=== PATIENT | male | born 1930 | race Caucasian/White ===

== ENCOUNTER 2017-11-17 07:00 | Observation (INO) ==
[~2017-11-17 07:00] MED LIST: LIDOCAINE W/ SODIUM BICARB 0.5 ML SYR SUBD ONE; Lactated Ringers 1,000 ML PRIMARY IV SCH; Nasal Sanitizer POPSWAB ampule 3 AMP (Nozin) PREOP DOSE ENOS SCH; ceFAZolin Inj 2gm (Premix) 2 GM/50 ML BAG IV ONE
[2017-11-17] MEDS ORDERED: ceFAZolin Inj 2gm (Premix) 0 GM/0 ML BAG IV ONE (07:03)
[2017-11-17] MEDS ORDERED: Lactated Ringers 0 ML PRIMARY IV ONE (07:03)
[2017-11-17] MEDS ORDERED: LIDOCAINE W/ SODIUM BICARB 0.5 ML SYR ONE (07:03)
[2017-11-17] MEDS ORDERED: MIDAZOLAM 5 MG/1 ML ONE (07:11)
[2017-11-17] MEDS ORDERED: REMIFENTANIL 1 MG/1 ML IV ONE (07:12)
[2017-11-17] MEDS ORDERED: PROPOFOL 10 MG/1 ML (200 MG/20 ML) VIAL IV ONE (07:12)
[2017-11-17] MEDS ORDERED: fentaNYL Inj 100 MCG/2 ML VIAL ONE (07:12)
[2017-11-17] MEDS ORDERED: Sodium Chloride 0.9% vial 10 ML ONE (07:14)
[2017-11-17] MEDS ORDERED: LIDOCAINE MPF 2% - 5 ML (20 MG/1 ML) ONE (07:14)
[2017-11-17] MEDS ORDERED: Sodium Chloride 0.9% 100 ML IV ONE (07:21)
--- NOTE | 2017-11-17 07:39 | EKG ---
[address] [address] Measurements Intervals [place] Rate: 69 P: MN: 0 QRS: 3 QRSD: 88 T: 5 QT: 408 QTc: 428 Interpretive Statements ATRIAL FIBRILLATION ABNORMAL RHYTHM ECG No previous ECG available for comparison Electronically Signed On 11-17-17 09:22:21 MDT by Marco Amador MD [email or web address]
--- NOTE | 2017-11-17 09:42 | PDOC(PROG) ---
Date of Service: 11/17/17 Time of Service: 09:00 Interval History: The patient presented this morning for excision of a large basal cell carcinoma on his back. Monitor showed a slightly irregular rhythm. An EKG was done and the patient is in atrial fibrillation. Anesthesia felt it was unwise to proceed with his surgery. I came in to evaluate the patient. Patient does report he has had an irregular heartbeat in the past. He was told he skipped beat. That goes back to his days. He has never been told he is in atrial fibrillation. He does not recall when he had his last EKG. He denies chest pain or shortness of breath. He feels fine. He is not aware of his irregular heartbeat. He does have some chronic left shoulder pain but nothing new. When I saw him several days ago in the office his heart rate was regular. I talked to the hospitalist. He feels with a new onset of atrial fibrillation it warrants overnight observation and rule out myocardial infarction and an echocardiogram. He has agreed to admit him for further care. I have discussed this with the patient and his . Objective : Exam - General General Appearance: No Acute Distress, Cooperative - Respiratory Respiratory Exam: Clear to Auscultation - Bilaterally, Breathing Non Labored - Cardiovascular Cardiovascular Exam: No Murmur, Irregular Rhythm (Predominantly regular with occasional skipped beat and then some irregular beats.) - GI/Abdominal GI/Abdominal Exam: Normal Bowel Sounds, Non Tender, Non Distended, Soft Assessment and Plan - Patient Problems (1) Atrial fibrillation by electrocardiogram Current Visit: Yes Status: Acute Priority: High Onset Date: Unknown Comment: Presumably new-onset atrial fibrillation. Patient will be admitted to the hospitalist service for further care. When he is cleared he will call my office and we will proceed with excision of the basal cell carcinoma on his back. I have spoken to Dr. Young the hospitalist. I have spoken to the patient and his . All are in agreement to proceed as outlined. Code(s): I48.91 - Unspecified atrial fibrillation
[2017-11-17] MEDS ORDERED: LIDOCAINE W/ SODIUM BICARB 0.5 ML SYR SUBD PRN (10:11)
[2017-11-17] MEDS ORDERED: ASCORBIC ACID 1 GM PO SCH (10:15)
[2017-11-17 10:55] LABS: BASOPHILS # (AUTO) 0.02 10*3/UL; BASOPHILS % (AUTO) 0.2 % (0-1); EOSINOPHILS % (AUTO) 1.2 % (0-8); Hematocrit [HCT] 44.5 % (42.0-52.0); Hemoglobin [HGB] 15.2 g/dL (14.0-18.0); LYMPHOCYTES # (AUTO) 1.66 10*3/uL; MEAN CORPUSCULAR HEMOGLOBIN 31.5 PG (27-31); MEAN CORPUSCULAR HGB CONC 34.2 g/dL (33-37); MEAN CORPUSCULAR VOLUME 92.1 FL (80-90); MEAN PLATELET VOLUME 10.2 FL (7.4-12.2); MONOCYTES % (AUTO) 8.3 % (5-15); NEUTROPHILS # (AUTO) 5.92 10*3/UL; NEUTROPHILS % (AUTO) 70.5 % (50-80); RED BLOOD COUNT 4.83 10^6/uL (4.70-6.10)
[2017-11-17 10:58] LABS: PLATELET MORPHOLOGY COMMENT NORMAL MORPHOLOGY (NORM); RBC MORPHOLOGY COMMENT NORMAL MORPHOLOGY (NORM); WBC MORPHOLOGY COMMENT NORMAL MORPHOLOGY (NORM)
[2017-11-17 11:06] LABS: BLOOD UREA NITROGEN 24 mg/dL (7-22); SERUM ALBUMIN 3.9 g/dL (3.5-4.8)
--- NOTE | 2017-11-17 12:12 | PDOC ---
HPI - History of Present Illness Date of Service: 11/17/17 Time of Service: 12:07 Chief Complaint: Skipped heartbeat noticed History of Present Illness: This is a very pleasant 87-year-old male with prior history of benign prostatic hypertrophy who is accompanied by his today waiting for surgery on an excision of a large basal cell carcinoma. In the perioperative holding, an EKG was done and the patient was examined by anesthesia and it was found that he was in atrial fibrillation with a controlled response. The patient is completely asymptomatic, no chest pains and no shortness breath. He's never had skipped heartbeats or symptoms or diagnosis of atrial fibrillation before. He's never had congestive heart failure, coronary artery disease events, or stroke. Given the finding of atrial fibrillation his surgery has been put on hold and I'm admitting the patient to start a workup on what the underlying cause of his atrial fibrillation might be. Again, the patient's never had this problem before. Does not drink alcohol. Has normal thyroid function. He has not had a stress test. He has never had a heart attack. He takes a baby aspirin daily normally. Past Medical History Medical History: 1. Benign prostatic hypertrophy Surgical History: 1. Hip replacement. 2. Cholecystectomy. 3. Tonsillectomy and adenoidectomy. 4. Prostate surgery Pertinent Family History: Significant for coronary artery disease in his father who of a heart attack at age 59. Past Social History: Quit smoking over 30 years ago. for almost 50 years. Has 4 children. 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 Tobacco Use: Former Smoker In the Past 12 Months, Have Used or Abuse Any of the Following Substance: None Alcohol Use: Occasionally Medication / Allergies Home Medications: Home Medications 3 Medication Instructions Recorded Confirmed Type Aspir 81 81 mg PO DAILY 09/25/10 11/17/17 History Acetaminophen [Tylenol] 325 mg PO PRN tab 09/16/16 11/17/17 History Tamsulosin HCl 2 cap PO DAILY #60 cap 09/17/16 11/17/17 Rx ascorbic acid (vitamin C) 1,000 mg 1 g PO Q6H 10/12/17 11/17/17 History tablet calcium carbonate 600 mg calcium 600 mg PO BID tab 10/12/17 11/17/17 History (1,500 mg) tablet Allergies/Adverse Reactions: Allergies 3 Allergy/AdvReac Type Severity Reaction Status Date / Time No Known Allergies Allergy Verified 11/17/17 07:23 Review of Systems - Review of Systems All Systems: Reviewed & No Additional Complaints Except as Stated (I did a 12 point review systems and it was negative other than that discussed in history of present illness an exceptions noted below.) - Cardiovascular Cardiovascular: REPORTS: Other (History of murmur in the past) - Musculoskeletal Musculoskeletal: REPORTS: Other (Gets joint pains from time to time. Attributed to arthritis. Chronic issue. Also gets bilateral edema at times but that is resolved with elevation of legs and is consistent with dependent edema) Exam - Vitals Vital Signs: Vital Signs Temperature 97.9 F Temperature Source Temporal Artery Scan Pulse Rate [Pulse Oximeter] 74 Pulse Rate 72 Respiratory Rate 20 Blood Pressure [Left Arm] 146/70 Blood Pressure 152/85 Pulse Ox 95 Oxygen Flow Rate room air Oxygen Delivery Method Room Air Height 5 ft 6 in Weight 189 lb 6.4 oz - General General Appearance: No Acute Distress, Cooperative - Head Head Exam: Normal Inspection, Normocephalic, Atraumatic - Eye Eye Exam: POSITIVE: No Scleral Icterus - ENT ENT Exam: POSITIVE: Mucous Membranes Moist - Neck Neck Exam: Normal Inspection, No Tenderness, No Lymphadenopathy, No Thyromegaly , JVP is not Raised - Respiratory Respiratory Exam: POSITIVE: Clear to Auscultation - Bilaterally, Breathing Non Labored, Normal to Percussion and Palpation - Cardiovascular Cardiovascular Exam: POSITIVE: RRR (At the time of my examination, the patient is regular rate and rhythm), No Murmur, No Clicks, No Gallops, No Rubs, No JVD - GI/Abdominal GI/Abdominal Exam: POSITIVE: Normal Bowel Sounds, Non Tender, Non Distended, Soft - Rectal Rectal Exam: POSITIVE: Deferred - External Exam: POSITIVE: Deferred Exam: POSITIVE: Deferred - Extremities Extremities Exam: POSITIVE: No Clubbing Present, No Edema Present, No Cyanosis Present - Back Back Exam: POSITIVE: No CVA Tenderness - Neurological Neurological Exam: POSITIVE: Alert, Oriented x 3, No Facial Droop, Speech Intact / Clear, Moves All Extremities Equally - Psychiatric Psychiatric Exam: POSITIVE: Normal Affect, Normal Mood Results - Labs CBC and BMP: 11/17/17 10:48 11/17/17 10:48 Additional Lab Results: Laboratory Results 11/17/17 11/17/17 11/17/17 Range/Units 10:25 10:48 10:48 WBC 8.41 (4.8-10.8) 10^3/uL RBC 4.83 (4.70-6.10) 10^6/uL Hgb 15.2 (14.0-18.0) g/dL Hct 44.5 (42.0-52.0) % MCV 92.1 H (80-90) FL MCH 31.5 H (27-31) PG MCHC 34.2 (33-37) g/dL RDW Std Deviation 46.1 (39-50) fL RDW Coeff of Dago 13.9 (11.5-14.5) % Plt Count 212 (140-350) 10*3/uL MPV 10.2 (7.4-12.2) FL Immature Gran % (Auto) 0.1 (0-5) % Neut % (Auto) 70.5 (50-80) % Lymph % (Auto) 19.7 (10-50) % Delta % (Auto) 8.3 (5-15) % Eos % (Auto) 1.2 (0-8) % Baso % (Auto) 0.2 (0-1) % Immature Gran # (Auto) 0.01 10*3/UL Neut # (Auto) 5.92 10*3/UL Lymph # (Auto) 1.66 10*3/uL Delta # (Auto) 0.70 (0.3-0.8) 10*3/UL Eos # (Auto) 0.10 10*3/UL Baso # (Auto) 0.02 10*3/UL WBC Morphology Comment Normal morphology (NORM) Plt Morphology Comment Normal morphology (NORM) RBC Morph Comment Normal morphology (NORM) PT 10.9 (9.7-11.4) secs INR 1.06 (0.00-5.90) N/A Sodium (135-145) meq/L Potassium (3.8-5.2) meq/L Chloride (98-112) meq/L Carbon Dioxide (23-33) meq/L Anion Gap (5-20) BUN (7-22) mg/dL Creatinine (0.70-1.50) mg/dL BUN/Creatinine Ratio (6-20) Glucose (78-110) mg/dL Calculated Osmolality (267-292) mOsm/kg Calcium (8.7-10.7) mg/dL Magnesium (1.6-2.4) mg/dL Total Bilirubin (0.3-1.2) mg/dL AST (21-57) IU/L ALT (21-72) IU/L Alkaline Phosphatase (38-126) IU/L Troponin I < 0.012 (< 0.040) ng/mL Total Protein (6.1-8.0) g/dL Albumin (3.5-4.8) g/dL Globulin (2.50-4.10) g/dL Albumin/Globulin Ratio (1.3-2.0) mg/g TSH (0.2700-4.2000) uIU/mL Free T4 (0.93-1.71) ng/dL 11/17/17 11/17/17 Range/Units 10:48 10:48 WBC (4.8-10.8) 10^3/uL RBC (4.70-6.10) 10^6/uL Hgb (14.0-18.0) g/dL Hct (42.0-52.0) % MCV (80-90) FL MCH (27-31) PG MCHC (33-37) g/dL RDW Std Deviation (39-50) fL RDW Coeff of Dago (11.5-14.5) % Plt Count (140-350) 10*3/uL MPV (7.4-12.2) FL Immature Gran % (Auto) (0-5) % Neut % (Auto) (50-80) % Lymph % (Auto) (10-50) % Delta % (Auto) (5-15) % Eos % (Auto) (0-8) % Baso % (Auto) (0-1) % Immature Gran # (Auto) 10*3/UL Neut # (Auto) 10*3/UL Lymph # (Auto) 10*3/uL Delta # (Auto) (0.3-0.8) 10*3/UL Eos # (Auto) 10*3/UL Baso # (Auto) 10*3/UL WBC Morphology Comment (NORM) Plt Morphology Comment (NORM) RBC Morph Comment (NORM) PT (9.7-11.4) secs INR (0.00-5.90) N/A Sodium 144 (135-145) meq/L Potassium 4.4 (3.8-5.2) meq/L Chloride 112 (98-112) meq/L Carbon Dioxide 26 (23-33) meq/L Anion Gap 6 (5-20) BUN 24 H (7-22) mg/dL Creatinine 1.5 (0.70-1.50) mg/dL BUN/Creatinine Ratio 16.00 (6-20) Glucose 83 (78-110) mg/dL Calculated Osmolality 300.0 H (267-292) mOsm/kg Calcium 9.3 (8.7-10.7) mg/dL Magnesium 1.9 (1.6-2.4) mg/dL Total Bilirubin 1.0 (0.3-1.2) mg/dL AST 16 L (21-57) IU/L ALT 23 (21-72) IU/L Alkaline Phosphatase 73 (38-126) IU/L Troponin I (< 0.040) ng/mL Total Protein 6.6 (6.1-8.0) g/dL Albumin 3.9 (3.5-4.8) g/dL Globulin 2.7 (2.50-4.10) g/dL Albumin/Globulin Ratio 1.40 (1.3-2.0) mg/g TSH 1.26 (0.2700-4.2000) uIU/mL Free T4 1.06 (0.93-1.71) ng/dL - EKG Data -: EKG Interpreted by In Rate: Normal - EKG Data EKG Interpretation: Other (Atrial fibrillation with a controlled ventricular response.) - Imaging Status: Image Pending (I'm going to check a chest x-ray.) AFib Stroke Risk Screening - AFib Stroke Risk (CHADS-VASc) Atrial Fibrillation Ischemic Stroke Risk Factors: Age 75 years or older (Given the patient's age, his stroke risk is 2.2% by risk assessment.) CHADS-VASc Score (A-Fib Stroke Risk Score): 2 CHADS-VASc Risk: High Risk Assessment and Plan - Patient Problems (1) Atrial fibrillation Current Visit: Yes Status: Acute Code(s): I48.91 - Unspecified atrial fibrillation Qualifiers: Atrial fibrillation type: unspecified Qualified Code(s): I48.91 - Unspecified atrial fibrillation (2) Benign prostatic hyperplasia Current Visit: Yes Status: Acute Code(s): N40.0 - Benign prostatic hyperplasia without lower urinary tract symptoms Qualifiers: Lower urinary tract symptom presence: unspecified whether lower urinary tract symptoms present Qualified Code(s): N40.0 - Benign prostatic hyperplasia without lower urinary tract symptoms (3) Basal cell carcinoma of lower back Current Visit: Yes Status: Acute (4) History of prostate cancer Current Visit: Yes Status: Chronic Onset Date: 09/23/15 Code(s): Z85.46 - Personal history of malignant neoplasm of prostate - Assessment / Plan Additional Assessment/Plan Details: Admit the patient for observation Start metoprolol at 12.5 mg by mouth twice a day (metoprolol tartrate) The patient and I spoke in depth regarding Coumadin versus Xarelto versus Eliquis, including all risks and benefits, risks being bleeding complications and possible pitfalls of not being able to reverse bleeding with antidotes, and benefits of treatment of blood clot, lack of drug interactions, and ease of therapy in terms of lab monitoring. The patient and his felt that Eliquis would be the best choice for stroke prevention given his situation. The patient is aware that whenever he starts today, he could always change in the future. I recommend at least 3 weeks of anticoagulation to 4 weeks of anticholinergic prior to any procedures as we do not know if this is chronic intermittent atrial fibrillation or paroxysmal atrial fibrillation Look for potential coronary artery disease with a Lexiscan stress test. I will try to arrange follow-up with cardiology for echocardiogram and surgical clearance. Patient is full code. I discussed the above plan with the patient and his and they agreed to proceed.
[2017-11-17] MEDS ORDERED: Apixaban Tab 2.5 MG TABLET PO ONE (12:17)
[2017-11-17] MEDS ORDERED: HEPARIN 5000 UNIT/1 ML SUBCUT SCH (15:00)
[2017-11-17] MEDS ORDERED: TAMSULOSIN 0.4 MG CAPSULE PO SCH (21:00)
[2017-11-17] MEDS: Metoprolol TARTRATE Tab 25 MG TAB PO SCH (21:11)
[2017-11-17] MEDS: Apixaban Tab 2.5 MG TABLET PO SCH (21:12)
[2017-11-17] MEDS: CALCIUM CARBONATE 500 MG (TUMS) CHEWABLE TABLET PO SCH (21:12)
[2017-11-18 00:03] VITALS: RESP 20
[2017-11-18] MEDS ORDERED: TAMSULOSIN 0.4 MG CAPSULE PO SCH (09:00)
[2017-11-18] MEDS ORDERED: ASPIRIN 325 MG TABLET PO SCH (09:00)
[2017-11-18] MEDS: CALCIUM CARBONATE 500 MG (TUMS) CHEWABLE TABLET PO SCH (09:51)
[2017-11-18] MEDS: Metoprolol TARTRATE Tab 25 MG TAB PO SCH ×2 (09:51→17:40)
[2017-11-18] MEDS: Apixaban Tab 2.5 MG TABLET PO SCH ×2 (09:51→17:40)
--- NOTE | 2017-11-18 09:54 | STRESSTEST ---
[facility] Interpretive Statements This is an 87 YO male with history of BPH who has remote history of smoking and positive family history of CAD, no HTN, no DM, no cholesterol who was found to have atrial fibrillation without symptoms of unknown duration. ruled out for [place]. Sandhya scan stress test done with resting images yesterday. Resting EKG is mixed sinus and afib. rate controlled. Sandhya scan with minimal symptoms, but atrial fibrillation underlying rhythm with occasional PVC. Plan: stress images today, await radiology report. Follow up with cardiology arranged. Electronically Signed On 11-22-17 08:37:17 MDT by Marco Amador MD [email or web address]
--- NOTE | 2017-11-18 16:46 | DI ---
2 DAY LEXISCAN STRESS & REST MYOCARDIAL PERFUSION SCANS, 11/17/2017 9:42 AM : Clinical History: Atrial fibrillation. Previous Exam: None available. The patient was stressed by Dr. Raymond Young DO The standard Lexiscan protocol was used. Please see the Doctor's report. At the designated time, 36.6 mCi of 99Tc-sestimibi was injected IV. Stress gated tomograms were acquired within one hour of the i njection. For the resting scans, 35.0 mCi was injected IV and resting gated tomograms were acquired in similar fashion. Stress scans were performed on 11/18/17; the resting scans were performed on 11/17/17. Quantitative and qualitative analyses were performed. Quantitative analysis was performed with the [place] [facility] [id number] protocols. Very low dose limited CT scans of the chest are o btained through the level of the heart for attenuation correction of the gated stress and rest cardia c SPECT data. Non-attenuated and attenuated scans were processed for review, and the attenuated scans were used for final interpretation of this study. Review of the raw data images and quality assurance supervisor body files indicate that these series of examinations ar e of excellent quality. Stress and rest left ventricular chamber sizes are normal. Stress and rest LV EF are 72 % and 71 %, respectively. There is no evidence of ischemia. There are no defects on stress nor rest. There is normal wall motion and normal ejection fraction. Transient ischemic dilatation ratio is 1.15, with a normal range up to 1.22 for patients str essed with the Ramin protocol and up to 1.33 for patients stressed with the Lexiscan protocol. The very low dose CT scans through the level of the heart demonstrate coronary artery calcifications within the left anterior descending artery There is subsegmental atelectasis in the lung bases. Visualized portions of the abdomen are unremarka ble. Readin. No evidence of ischemia. 2. Normal wall motion and normal ejection fraction.
[2017-11-18 17:26] VITALS: BP 115/61; TEMP 97.6; O2SAT 95
--- NOTE | 2017-11-18 17:37 | DCSUMMARY ---
Hospitalization Summary Admit Date: 11/17/2017 Discharge Date: 11/18/17 Primary Diagnosis:: atrial fibrillation, probably chronic intermittent Hospital Course: This very pleasant 87-year-old male who has underlying benign prostatic hypertrophy post prior history of prostate surgery. He was here for basal cell carcinoma excision to be done under general anesthesia and it was noted that he had atrial fibrillation. He is admitted for further evaluation and management. We admitted the patient, did a stress test, and it was a negative stress test. He ruled out for myocardial infarction. His thyroid function appeared normal. He is not an alcoholic. His chest x-ray shows cardiomegaly. His EKG showed rate controlled atrial fibrillation. Today prior to his Lexiscan stress test component of his 2 day stress test, I noted that his EKG showed intermittent atrial fibrillation with normal sinus rhythm. He is asymptomatic. The stress test read was that it was a negative study with calcifications noted in the left anterior descending artery. We have the patient arranged to see Dr. Salazar in [place] tomorrow at 11:30 for an echocardiogram and perioperative evaluation and clearance. I do not want the patient to have surgery for at least 30 days to remain on his beta ciera and he should take a sip of his beta ciera prior to surgery. I told him in terms of stroke prevention agent, that we should hold that at least 4 days prior to surgery. He should not resume it until 24 hours after surgery. We had significant discussion regarding anticoagulants for stroke prevention as well as antiplatelet agents for stroke prevention. The patient and his decided on Eliquis. We spent a significant amount of time discussing risks and benefits of these therapies, including metoprolol and Eliquis, and side effects that may be most likely to occur. We will send in prescriptions for 1 month and then they will need to see Sotero Gupta for further prescriptions. Today, no completes of chest pain, shortness breath, nausea or vomiting. The patient is ready to go home. His agrees with the plan above. Assessment and Plan: 1. As per discharge assessments noted 2. Disposition: Patient is discharged home. 3. Condition on discharge, stable and improved. 4. Diet: regular diet 5. Activities: resume normal activities 6. Follow-Up: 1. See Sotero gupta in a week 2. See Dr. Salazar tomorrow in the clinic 7. Medications at the Time of Discharge: Home Medications 3 Medication Instructions Recorded Confirmed Type Acetaminophen [Tylenol] 325 mg PO PRN tab 09/16/16 11/17/17 History Tamsulosin HCl 2 cap PO DAILY #60 cap 09/17/16 11/17/17 Rx ascorbic acid (vitamin C) 1,000 mg 1 g PO Q6H 10/12/17 11/17/17 History tablet calcium carbonate 600 mg calcium 600 mg PO BID tab 10/12/17 11/17/17 History (1,500 mg) tablet Apixaban [Eliquis] 2.5 mg PO BID #60 tab 11/18/17 Rx Metoprolol Tartrate Tab 12.5 mg PO BID #60 tab 11/18/17 Rx [Lopressor Tab] Exam - Vitals Vital Signs: Vital Signs Temperature 97.6 F Temperature Source Temporal Artery Scan Pulse Rate [Pulse Oximeter] 74 Pulse Rate [Apical] 88 Pulse Rate 68 Respiratory Rate 20 Blood Pressure [Left Arm] 115/61 Blood Pressure 152/85 Pulse Ox 95 Oxygen Flow Rate room air Oxygen Delivery Method Room Air Height 5 ft 6 in Weight 188 lb 6.4 oz - General General Appearance: No Acute Distress, Cooperative - Eye Eye Exam: POSITIVE: No Scleral Icterus - ENT ENT Exam: POSITIVE: Mucous Membranes Moist - Respiratory Respiratory Exam: POSITIVE: Clear to Auscultation - Bilaterally, Breathing Non Labored - Cardiovascular Cardiovascular Exam: POSITIVE: No Murmur, No Clicks, No Gallops, No Rubs, Irregular Rhythm, No JVD - GI/Abdominal GI/Abdominal Exam: POSITIVE: Normal Bowel Sounds, Non Tender, Non Distended, Soft - Extremities Extremities Exam: POSITIVE: No Clubbing Present, No Edema Present, No Cyanosis Present - Neurological Neurological Exam: POSITIVE: Alert, Oriented x 3, No Facial Droop, Speech Intact / Clear, Moves All Extremities Equally - Psychiatric Psychiatric Exam: POSITIVE: Normal Affect, Normal Mood Data Peritnent Studies: Laboratory Results 11/17/17 Range/Units 22:26 Troponin I < 0.012 (< 0.040) ng/mL 11/17/17 11/17/17 11/17/17 10:25 10:48 10:48 WBC 8.41 Hgb 15.2 Hct 44.5 MCV 92.1 H MCH 31.5 H Plt Count 212 PT 10.9 INR 1.06 Sodium Potassium Chloride Carbon Dioxide Anion Gap BUN Creatinine BUN/Creatinine Ratio Glucose Calculated Osmolality Calcium Magnesium Total Bilirubin AST ALT Alkaline Phosphatase Troponin I < 0.012 Total Protein Albumin Globulin Albumin/Globulin Ratio TSH Free T4 11/17/17 11/17/17 11/17/17 10:48 10:48 16:23 WBC Hgb Hct MCV MCH Plt Count PT INR Sodium 144 Potassium 4.4 Chloride 112 Carbon Dioxide 26 Anion Gap 6 BUN 24 H Creatinine 1.5 BUN/Creatinine Ratio 16.00 Glucose 83 Calculated Osmolality 300.0 H Calcium 9.3 Magnesium 1.9 Total Bilirubin 1.0 AST 16 L ALT 23 Alkaline Phosphatase 73 Troponin I < 0.012 Total Protein 6.6 Albumin 3.9 Globulin 2.7 Albumin/Globulin Ratio 1.40 TSH 1.26 Free T4 1.06 11/17/17 22:26 WBC Hgb Hct MCV MCH Plt Count PT INR Sodium Potassium Chloride Carbon Dioxide Anion Gap BUN Creatinine BUN/Creatinine Ratio Glucose Calculated Osmolality Calcium Magnesium Total Bilirubin AST ALT Alkaline Phosphatase Troponin I < 0.012 Total Protein Albumin Globulin Albumin/Globulin Ratio TSH Free T4 Procedures: [address] [place] [address] PH: DD: [phone] FAX: [phone] ~DIAGNOSTIC IMAGING REPORT~ Patient: Garth Gonsalez : 1930 Sex: M Age: 87 Exam Name: DC Myocardial Multi-Spect Exam Date: 11/17/17 Report # : [id number] CPT Code: 53047 EMR/MR #: [id number] Ordering: KERVIN TALAMANTES Admiting: KERVIN TALAMANTES DO Primary: Mary Gupta DNP Attending: KERVIN TALAMANTES DO Signed 2 DAY LEXISCAN STRESS & REST MYOCARDIAL PERFUSION SCANS, 11/17/2017 9:42 AM : Clinical History: Atrial fibrillation. Previous Exam: None available. The patient was stressed by Dr. Kervin Talamantes DO The standard Lexiscan protocol was used. Please see the Doctor's report. At the designated time, 36.6 mCi of 99Tc-sestimibi was injected IV. Stress gated tomograms were acquired within one hour of the injection. For the resting scans, 35.0 mCi was injected IV and resting gated tomograms were acquired in similar fashion. Stress scans were performed on 11/18/17; the resting scans were performed on 11/25. Quantitative and qualitative analyses were performed. Quantitative analysis was performed with the [facility] [id number] protocols. Very low dose limited CT scans of the chest are obtained through the level of the heart for attenuation correction of the gated stress and rest cardiac SPECT data. Non-attenuated and attenuated scans were processed for review, and the attenuated scans were used for final interpretation of this study. Review of the raw data images and vice president quality files indicate that these series of examinations are of excellent quality. Stress and rest left ventricular chamber sizes are normal. Stress and rest LVEF are 72 % and 71 %, respectively. There is no evidence of ischemia. There are no defects on stress nor rest. There is normal wall motion and normal ejection fraction. Transient ischemic dilatation ratio is 1.15, with a normal range up to 1.22 for patients stressed with the Ramin protocol and up to 1.33 for patients stressed with the Lexiscan protocol. The very low dose CT scans through the level of the heart demonstrate coronary artery calcifications within the left anterior descending artery There is subsegmental atelectasis in the lung bases. Visualized portions of the abdomen are unremarkable. Readin. No evidence of ischemia. 2. Normal wall motion and normal ejection fraction. Dictated By: 11/18/17 1624 TERRENCE ROBERT MD. Signed By: 11/18/17 1646 TERRENCE ROBERT MD. Patient Problems - Patient Problem List (1) Atrial fibrillation Current Visit: Yes Status: Acute Code(s): I48.91 - Unspecified atrial fibrillation Qualifiers: Atrial fibrillation type: chronic Qualified Code(s): I48.2 - Chronic atrial fibrillation Category: Medical (2) Benign prostatic hyperplasia Current Visit: Yes Status: Acute Code(s): N40.0 - Benign prostatic hyperplasia without lower urinary tract symptoms Qualifiers: Lower urinary tract symptom presence: unspecified whether lower urinary tract symptoms present Qualified Code(s): N40.0 - Benign prostatic hyperplasia without lower urinary tract symptoms Category: Medical (3) Basal cell carcinoma of lower back Current Visit: Yes Status: Acute Comment: Left lower back. Category: Medical (4) History of prostate cancer Current Visit: Yes Status: Chronic Onset Date: 09/23/15 Code(s): Z85.46 - Personal history of malignant neoplasm of prostate Category: Medical
--- NOTE | 2017-11-19 09:08 | DI ---
XR CXR 1VW,11/18/2017 3:26 PM: Clinical History: Atrial fibrillation. Previous Exam: None at this facility. Findings: A single frontal radiograph of the chest is obtained, and demonstrates cardiomegaly. Overlying EKG le ads are seen. The bony thorax is unremarkable. Impression: Cardiomegaly otherwise unremarkable.
== END 2017-11-18 17:44 | disposition home or self-care (01) ==
LOC: OR 07:00 → MED/SURG 07:00
PROVIDERS: ADMIT Family Medicine; ATTEND Family Medicine